=== PATIENT | female | born 1980 ===

== ENCOUNTER 2016-12-25 11:30 | Inpatient (IN) | payer OTHER ==
[~2016-12-25] VITALS: Ht 154.9 cm; Wt 79.4 kg
[2016-12-27] VITALS (12 sets, daily range): BP systolic 112–126; BP diastolic 63–76
[2016-12-27] MEDS ORDERED: NKM (10:13)
[2016-12-27] MEDS ORDERED: ceFAZolin sod 2 GM in D5W 110 ML IVPB ONE (10:20)
[2016-12-27] MEDS ORDERED: Vancomycin 1gm inj IVPB ONE (10:22)
[2016-12-27] MEDS ORDERED: Thrombin 5000 units TOPIC ONE (10:22)
--- NOTE | 2016-12-27 10:22 | Anethesia Preoperative Eval ---
Anesthesia Pre-op PMH/ROS General Date of Evaluation: Dec 27, 2016 Anesthesiologist: Peng ASA Score: ASA 2 Mallampati Score Class I : Soft palate, uvula, fauces, pillars visible Class II: Soft palate, uvula, fauces visible Class III: Soft palate, base of uvula visible Class IV: Only hard plate visible Mallampati Classification: Class III Surgeon: Pedro Luis Diagnosis: Cervical radiculopathy Surgical Procedure: ACDF C5-6 Anesthesia History: none Family History: no anesthesia problems Allergies: Coded Allergies: IBUPROFEN (Verified Allergy, Severe, Shortness of Breath;sweating, 12/27/16 ) Medications: see eMAR Past Medical History Cardiovascular: Denies: CAD, HTN, NC, arrhythmia, other, valve dz Pulmonary: Reports: asthma, Denies: COPD, SABA, other Gastrointestinal/Genitourinary: Denies: CRI, ESRD, GERD, other Neurologic/Psychiatric: Denies: CVA, TIA, dementia, depression/anxiety, other Endocrine: Denies: DM, hypothyroidism, other, steroids HEENT: Denies: YOMBA SHOSHONE (L), YOMBA SHOSHONE (R), cataract (L), cataract (R), glaucoma, other Hematology/Immune: Denies: DVT, anemia, bleeding disorder, other Musculoskeletal/Integumentary: Denies: DDD, DJD, OA, RA, edema, other Other: obesity PSxH Narrative: LIZBETH Anesthesia Pre-op Phys. Exam Physician Exam see chart Constitutional: NAD Cardiovascular: RRR Respiratory: CTA Airway Exam Mallampati Score: Class III MO: limited ROM: limited Teeth: intact Anesthesia Pre-op A/P Labs see chart Urine Test Test 12/27/16 09:30 Urine HCG, Qualitative Negative Risk Assessment & Plan Assessment: ASA II, patient with complaint of pre-op throat pain. No difficulty swallowing. Explained the fact that she will be intubated and the throat pain may worsen s/ p surgery Plan: GA Status Change Before Surgery: No Pre-Antibiotics Drug: Ancef 2g Given Within 1 Hr of Incision: JENNIE Hurd M.D. Dec 27, 2016 10:22
[2016-12-27] MEDS ORDERED: Bupivacaine w/Epi 0.5% 30ml Vial INJ ONE (10:23)
[2016-12-27] MEDS ORDERED: Bacitracin 50000 Units Vial ONE (10:23)
[2016-12-27] MEDS ORDERED: LR 1000ml 1,000 ML IVLG SCH (11:41)
--- NOTE | 2016-12-27 11:44 | Pre-Procedure Note/Attestation ---
Pre-Procedure Note/Attestation Complete Prior to Procedure Procedure Narrative: acdf c56 Indications for Procedure Pre-Operative Diagnosis: cervical radiculopathy Attestation I attest that I discussed the nature of the procedure; its benefits; risks and complications; and alternatives (and the risks and benefits of such alternatives ), prior to the procedure, with the patient (or the patient's legal administrative representative). I attest that, if there was a reasonable possibility of needing a blood transfusion, the patient (or the patient's legal administrative representative) was given the [facility] standardized written summary, pursuant to the Cheng Carlene Blood Safety Act ([place] Health and Safety Code # 1645, as amended). I attest that I re-evaluated the patient just prior to the surgery and that there has been no change in the patient's H&P, except as documented below: VANDANA TRAORE Dec 27, 2016 11:44
[2016-12-27] MEDS ORDERED: Zemuron 50mg/5ml Inj IV ONE (11:45)
[2016-12-27] MEDS ORDERED: Propofol 10mg/ml 100ml btl IV ONE (11:45)
[2016-12-27] MEDS ORDERED: Metoclopramide 10mg/2ml Inj IVP PRN (11:45)
[2016-12-27] MEDS ORDERED: Lidocaine 1% MPF 10mg/ml 5ml ONE (11:45)
[2016-12-27] MEDS ORDERED: LR 1000ml ONE (11:45)
[2016-12-27] MEDS ORDERED: fentaNYL 250mcg/5ml ONE (11:45)
[2016-12-27] MEDS ORDERED: Midazolam 2mg/2ml Inj ONE (11:45)
[2016-12-27] MEDS ORDERED: Dexamethasone 4mg/ml vial ONE (11:45)
[2016-12-27] MEDS ORDERED: DiphenhydrAMINE 50mg/ml Inj IVP PRN (11:45)
[2016-12-27] MEDS ORDERED: fentaNYL 100 mcg/2 mL IV PRN (11:45)
[2016-12-27] MEDS ORDERED: NS Irrig 1000ml ONE (11:45)
[2016-12-27] MEDS ORDERED: Propofol 10mg/ml 20ml IV ONE (11:45)
[2016-12-27] MEDS ORDERED: Metoclopramide 10mg/2ml Inj ONE (11:45)
[2016-12-27] MEDS ORDERED: Sterile Water Irrig 1000ml IRRIG ONE (11:45)
--- NOTE | 2016-12-27 12:21 | Immediate Post-Op Evaluation ---
Immediate Post-Op Evalulation Immediate Post-Op Evalulation Procedure: ACDF C5-6 Date of Evaluation: Dec 27, 2016 Time of Evaluation: 14:13 IV Fluids: 1.1L Blood Products: 0 Estimated Blood Loss: 50 Urinary Output: 0 Blood Pressure Systolic: 119 Blood Pressure Diastolic: 75 Pulse Rate: 89 Respiratory Rate: 16 O2 Sat by Pulse Oximetry: 100 Temperature (Fahrenheit): 99 Pain Score (1-10): 0 Nausea: No Vomiting: No Complications 0 Patient Status: awake, reacts, patent, none Hydration Status: adequate Drug: Ancef 2g Given Within 1 Hr of Incision: Yes Time Given: 12:00 JENNIE HERRERA M.D. Dec 27, 2016 12:21
[2016-12-27] MEDS ORDERED: Muri-Lube ONE (13:12)
[2016-12-27] MEDS: Hydromorphone 0.5mg/0.5ml inj IVP PRN ×3 (14:22→15:14)
--- NOTE | 2016-12-27 14:58 | Diagnostic Imaging Report ---
Indication: PAIN, intraoperative Technique: Digital intraoperative images Comparison: None Findings: Initial image demonstrates a surgical tool projected anterior to the C5-6 disc. Subsequent images document placement of a disc spacer and anterior fusion hardware at C5-6. This appears well aligned. Impression: Intraoperative imaging, as described
[2016-12-27] MEDS ORDERED: Naloxone 0.4mg/ml Inj IVP PRN (15:15)
[2016-12-27] MEDS ORDERED: Norco 7.5mg/325mg tab ORAL PRN ×2 (16:30)
[2016-12-27] MEDS ORDERED: Norco 5mg/325mg tab ORAL PRN (16:30)
[2016-12-27] MEDS ORDERED: Labetalol 5mg/ml 20ml vial IV PRN (18:00)
[2016-12-27] MEDS: Docusate 100mg tablet ORAL SCH (18:34)
[2016-12-27] MEDS: D5 1/2NS 1,000 ML IV SCH (18:45)
[2016-12-27] MEDS: ceFAZolin sod 1 GM in D5W 55 ML IV SCH (19:33)
[2016-12-27] MEDS ORDERED: Tubing IV Secondary IV ONE (22:21)
[2016-12-27] MEDS ORDERED: D5 1/2NS 1000ml IV ONE (22:21)
[2016-12-28] VITALS: BP 118/75
--- NOTE | 2016-12-28 00:58 | Operative Note - Dictated ---
DATE OF OPERATION: 12/27/2016 PREOPERATIVE DIAGNOSIS: C5-C6 disk herniation with nerve impingement and right upper extremity radiculopathy. POSTOPERATIVE DIAGNOSIS: C5-C6 disk herniation with nerve impingement and right upper extremity radiculopathy. PROCEDURES PERFORMED: 1. Anterior cervical interbody arthrodesis at C5-C6 2. Anterior cervical instrumentation at C5-C6 3. Anterior cervical diskectomy and decompression of the spinal canal at C5-C6. 4. Implantation of PEEK interbody spacer with allograft and autograft . 5. Anterior foraminotomy at C5-C6. 6. Autologous bone harvest at C5-C6 . 7. Intraoperative use of fluoroscopy. 8. Intraoperative use of microscope. 9. SSEP/EMG/MEP monitoring. SURGEON: Jeremy Cloud M.D. APPARATUS LINEMAN: Jose Rafael Harris M.D. ANESTHESIA: General endotracheal anesthesia. ANESTHESIOLOGIST: Dr. Swanson. EBL: Was less than 50 mL. INTRAVENOUS ANTIBIOTICS: A 2 g of Ancef . COMPLICATIONS: None. BACKGROUND INDICATION: This is a pleasant female, who presented with neck pain and upper extremity radicular pain, who failed nonoperative. Options, risks, alternatives, and benefits were discussed with the patient. Risks include, but are not limited to, anesthesia complications including , medical complications including liver, kidney, and cardiopulmonary deficits, bleeding infection, dysphonia, dysphagia, hematoma of the neck, nerve root injury, paralysis, spinal cord injury, CSF leak, dural tear, fracture of the hardware, loosening of the hardware, need for revision decompression and fusion at adjacent levels, swallowing difficulties, esophageal injury, tracheal injury, recurrent laryngeal nerve injury as well as other complications including compartment syndrome. The patient understood and wished to proceed. Written and verbal consent was given. No guarantees were given. INTRAOPERATIVE FINDINGS: Herniated nucleus pulposus at C5-C6 with spinal cord compression and foraminal stenosis for the exiting C6 nerve roots. DESCRIPTION OF OPERATION: The patient was brought into the operating room supine on a stretcher. Appropriate IV lines were placed by the anesthesiologist. A 2 g of Ancef was administered before the incision. The patient was induced and intubated without complication. The patient was positioned on the operating room table. The neck was placed in neutral alignment. The arms were tucked by the side. All bony prominences were well padded as well as the four extremities. SSEP/EMG/MEP monitoring leads were placed and baseline recordings was done by the radioactivity technician. By the end, the case reported that there was improvement in the recordings of the SSEP. Preoperative fluoroscopy revealed the planned incision to be over the right side over the C5-C6 interspace. Fluoroscopy revealed the neck to be in adequate alignment. The neck was prepped and draped in usual sterile fashion. The incision was carried out with a scalpel on the anterior right side of the neck in the crease of the neck. Hemostasis was achieved with bipolar cautery. The platysma was incised inline with the skin incision. Blunt dissection was carried out in the interval between the strap muscles and sternocleidomastoid. Superficial cervical fascia was dissected caudally as well as cephalad. Carotid pulse was palpated and was found to be well lateral to the field of dissection. Deep cervical fascia was encountered. Once the deep cervical fascia was found, blunt dissection was carried out with Kitners as well as finger dissection. The longus coli was subperiosteally dissected off of the spine. At this point, retractors were set into place. Spinal needle was placed in the C5-C6 interspace was positively identified via lateral fluoroscopy. The whole case was done with the intraoperatively sterilely draped microscope from the very beginning of the skin incision to skin closure. At this point, attention was diverted to the diskectomy. A #15 scalpel was used to incise the anterior annulus and with pituitary rongeur straight curved curette as well as a high speed drill, a radical diskectomy was accomplished at C5-C6. The uncus was gently drilled with a high-speed drill. The endplate cartilage was removed. Endplate bone was well preserved and the posterior aspect of the C5 and C6 vertebral bodies were removed for a complete spinal canal decompression. A #1 and #2 Kerrison punches were used for an anterior foraminotomy. Micro set forward and backward # 2 micro set were used to remove the PLL and a complete decompression at the central canal, lateral recess and the foraminal areas was accomplished and a complete decompression of the spinal cord and the exiting nerve roots entailed. Valsalva 40 mmHg was done. There was no CSF leak. The wound was copiously irrigated with triple antibiotic solution. Multiple trials from the spinal element system were used and a # 7 lordotic PEEK interbody device was chosen and packed with local autograft which was safe from the drilling as well as allograft. The PEEK interbody spacer was tamped into place at C5-C6 with excellent lordosis at that level at appropriate sized. [place] plate was chosen and #14 self-drilling screws was fixed to the anterior surface of the C5 and C6 vertebral bodies with excellent purchase of each screw. Each screw sat beneath the locking mechanism of the plate appropriately and at this point, final AP and lateral x-rays were fluoroscopy was taken and all instrumentation was found to be in excellent position. Hemostasis was achieved with Gelfoam, thrombin, and FloSeal. There was no bleeding and therefore, a drain was decided not to be needed and decided not to be useful at this point. The platysma was closed with 2-0 Vicryl sutures. The subcuticular subdermal layers were closed with 3-0 Vicryl sutures in an interrupted fashion. The skin was closed with Dermabond. Sterile dressing tape was placed. All sponge, needle, and instrument counts were correct. There was no complications during the case. EBL was less than 50 mL. The patient was extubated. C-collar was placed and was taken to recovery room in stable condition and found to be neurovascularly intact. She was admitted to the hospital for monitoring. Jeremy Cloud M.D. DR: Wili JOB#: [id number] CC: BIRGIT
[2016-12-28] MEDS: D5 1/2NS 1,000 ML IV SCH ×2 (02:34→12:30)
[2016-12-28] MEDS: HYDROmorphone 1mg/ml Carpuject SUBQ PRN ×2 (03:16→08:49)
[2016-12-28 04:00] VITALS: BP 104/49
[2016-12-28] MEDS: ceFAZolin sod 1 GM in D5W 55 ML IV SCH ×2 (04:09→12:09)
[2016-12-28 08:00] VITALS: BP 109/65
[2016-12-28] MEDS: Docusate 100mg tablet ORAL SCH (08:41)
[2016-12-28] MEDS: HYDROmorphone 1mg/ml Carpuject IVP PRN ×2 (08:42→11:59)
--- NOTE | 2016-12-28 11:08 | 48 Hour Post Anesthesia Eval ---
Post Anesthesia Evaluation Procedure: ACDF C5-6 Date of Evaluation: Dec 28, 2016 Time of Evaluation: 11:06 Blood Pressure Systolic: 112 0: 54 Pulse Rate: 72 Respiratory Rate: 20 Temperature (Fahrenheit): 97.6 O2 Sat by Pulse Oximetry: 98 Airway: patent Nausea: No Vomiting: No Pain Intensity: 2 Hydration Status: adequate Cardiopulmonary Status: stable Mental Status/LOC: patient returned to baseline Follow-up Care/Observations: n/a Post-Anesthesia Complications: none Follow-up care needed: ready to discharge GOKUL SCHMIDT M.D. Dec 28, 2016 11:07
[2016-12-28 12:00] VITALS: BP 114/53
[2016-12-28] MEDS ORDERED: VICODIN ES 7.51 EAC1 ORAL (12:57)
[2016-12-28] MEDS ORDERED: SOMA350 MG PO (12:58)
[2016-12-28] MEDS ORDERED: ZOFRAN4 M3 ORAL (12:59)
[2016-12-28] MEDS ORDERED: ceFAZolin sod 1 GM in NS 55 ML IV SCH (22:00)
--- NOTE | 2016-12-29 15:22 | Discharge Summary ---
Discharge Summary Hospital Course Date of Admission Dec 27, 2016 at 09:15 Date of Discharge Dec 28, 2016 at 15:30 Admitting Diagnosis SACHIN Lawson is a 36 year old female who was admitted on Dec 27, 2016 at 09:15 for Cervical Radiculopathy Hospital Course [id number] Discharge Discharge Disposition Patient was discharged to Home (01) Discharge Diagnoses: Maria Alejandra Mcclure NP Dec 29, 2016 15:22
--- NOTE | 2016-12-29 22:58 | Discharge Summary 2 SIG ---
DATE OF ADMISSION: 12/27/2016 DATE OF DISCHARGE: 12/28/2016 BRIEF HOSPITAL COURSE: The patient is a 36-year-old female who presented with neck pain and upper extremity radicular pain who failed nonoperative options. She was admitted on 12/27/2016 and underwent ACDF on C5-C6. Postoperatively, she was given pain management. She underwent physical and occupational therapy. Diet was advanced and was provided soft collar. The patient was discharged home. FINAL DIAGNOSES: 1. C5-C6 disk herniation with nerve impingement. 2. Right upper extremity radiculopathy, status post ACDF C5-C6. Jeremy Cloud M.D. I have been assigned to dictate discharge summary on this account and I was not involved in the patient's management. Maria Alejandra Mcclure N.P. DR: ROBBIE JOB#: [id number] CC:
--- NOTE | 2017-01-05 14:14 | Brief Operative Note ---
Immediate Post Operative Note Operative Note Pre-op Diagnosis: cervical radiculopathy Procedure: acdf c56 Post-op Diagnosis: same as pre-op Findings: consistent w/pre-op dx studies Surgeon: arpan Bobj Developer: jose Anesthesiologist: andrés Anesthesia: general Specimen: none Complications: none Condition: stable Fluids: 1000cc Estimated Blood Loss: minimal Drains: none Implant(s) used?: Yes VANDANA TRAORE Jan 05, 2017 14:14
== END 2016-12-28 15:30 | disposition home or self-care (01) | DRG 473 ==
LOC: SDSOVERFLO 12-27 09:15 → 3E 12-27 14:27
PROC: 0RT30ZZ Resection of Cervical Vertebral Disc, Open Approach (ICD-10-PCS; principal; 2016-12-27 11:30)
PROC: 4A11X4G Monitoring of Peripheral Nervous Electrical Activity, Intraoperative, External Approach (ICD-10-PCS; principal; 2016-12-27 11:30)
PROC: 0RG10A0 Fusion of Cervical Vertebral Joint with Interbody Fusion Device, Anterior Approach, Anterior Column, Open Approach (ICD-10-PCS; principal; 2016-12-27 11:30)
DX: M50.122 Cervical disc disorder at C5-C6 level with radiculopathy (principal)
CPT/HCPCS: 36415; 72040; 76001; 81025; 86850; 86900; 86901; 87081; 94003; 94150; J2250; J2405; J2765